=== PATIENT | female | born 1995 | race Caucasian/White ===

== ENCOUNTER 2016-08-24 23:34 | Inpatient (IN) | payer OTHER ==
[2016-08-25 00:21] LABS: HCT 39.5 % (37.0-47.0); HGB 13.4 g/dl (12.5-16.0); MCH 31.4 pg (25.0-31.0); MCHC 33.9 g/dL (32.0-36.0); MCV 92.5 fL (78.0-100.0); MPV 12.2 fL (6.0-9.5); RBC 4.27 M/uL (4.20-5.40); RDW 14.9 % (11.5-14.0); WBC 16.8 K/uL (4.0-10.5)
[2016-08-25 00:24] LABS: BILIRUBIN NEGATIVE (NEGATIVE); BLOOD NEGATIVE Ery/uL (NEGATIVE); CLARITY CLEAR (CLEAR); COLOR YELLOW (YELLOW); GLUCOSE (U) NORMAL (NORMAL); KETONE (U) NEGATIVE (NEGATIVE); LEUKOCYTES 1+ Leu/uL (NEGATIVE); NITRITE NEGATIVE (NEGATIVE); PROTEIN NEGATIVE (NEGATIVE); UROBILINOGEN 0.2 mg/dL (0.2-1.0); pH 7.5 (5.0-9.0)
[2016-08-25 00:28] LABS: BACTERIA 1+
[2016-08-25 00:33] LABS: AMPHETAMINES NEGATIVE (NEGATIVE); BARBITURATES NEGATIVE (NEGATIVE); BENZODIAZEPINES NEGATIVE (NEGATIVE); COCAINE NEGATIVE (NEGATIVE); MARIJUANA (THC) NEGATIVE (NEGATIVE); METHADONE NEGATIVE (NEGATIVE); TRICYCLIC ANTIDEPRESSANT NEGATIVE (NEGATIVE)
[2016-08-25 04:08] LABS: BILIRUBIN NEGATIVE (NEGATIVE); BLOOD NEGATIVE Ery/uL (NEGATIVE); CLARITY CLEAR (CLEAR); COLOR YELLOW (YELLOW); GLUCOSE (U) NORMAL (NORMAL); KETONE (U) NEGATIVE (NEGATIVE); LEUKOCYTES NEGATIVE Leu/uL (NEGATIVE); NITRITE NEGATIVE (NEGATIVE); PROTEIN NEGATIVE (NEGATIVE); UROBILINOGEN 0.2 mg/dL (0.2-1.0)
[2016-08-25 13:30] LABS: HCT 34.1 % (37.0-47.0); HGB 11.3 g/dl (12.5-16.0); MCH 31.2 pg (25.0-31.0); MCHC 33.1 g/dL (32.0-36.0); MCV 94.2 fL (78.0-100.0); MPV 11.4 fL (6.0-9.5); RBC 3.62 M/uL (4.20-5.40); RDW 14.7 % (11.5-14.0); WBC 13.4 K/uL (4.0-10.5)
== END 2016-08-27 10:35 | disposition home or self-care (01) | DRG 766 ==
LOC: FOD 23:34 → FOB 23:36 → FOD 23:49 → FOB 23:50
PROVIDERS: ADMIT Obstetrics & Gynecology
PROC: 10D00Z1 Extraction of Products of Conception, Low, Open Approach (ICD-10-PCS; principal; 2016-08-25 01:27)
DX: O34.211 Maternal care for low transverse scar from previous cesarean delivery (principal); F17.210 Nicotine dependence, cigarettes, uncomplicated; Z3A.38 38 weeks gestation of pregnancy; Z37.0 Single live birth; R10.9 Unspecified abdominal pain; O99.334 Smoking (tobacco) complicating childbirth
CPT/HCPCS: 36415; 80305; 81001; 81003; J0690; J1885

== ENCOUNTER 2017-02-15 01:25 | Emergency (ER) | payer OTHER ==
[2017-02-15 02:46] LABS: BASOPHIL 0.2 % (0-2); HGB 13.5 g/dl (12.5-16.0); LYMPHOCYTE 37.2 % (15-48); MCH 29.4 pg (25.0-31.0); MCHC 32.9 g/dL (32.0-36.0); MCV 89.3 fL (78.0-100.0); MONOCYTE 10.4 % (0-12); NEUTROPHIL 49.2 % (41-80); PLT 191 K/uL (150-400); RBC 4.59 M/uL (4.20-5.40); RDW 14.5 % (11.5-14.0); WBC 6.3 K/uL (4.0-10.5)
[2017-02-15 03:01] LABS: BILIRUBIN NEGATIVE (NEGATIVE); BLOOD 2+ Ery/uL (NEGATIVE); CLARITY CLEAR (CLEAR); COLOR YELLOW (YELLOW); GLUCOSE (U) NORMAL (NORMAL); KETONE (U) TRACE mg/dL (NEGATIVE); LEUKOCYTES NEGATIVE Leu/uL (NEGATIVE); NITRITE NEGATIVE (NEGATIVE); PROTEIN NEGATIVE (NEGATIVE); pH 6.5 (5.0-9.0)
== END 2017-02-15 03:19 | disposition left against medical advice (07) ==
LOC: FER 01:25
PROVIDERS: Emergency Medicine Emergency Medical Services
DX: N93.8 Other specified abnormal uterine and vaginal bleeding (principal); F17.210 Nicotine dependence, cigarettes, uncomplicated
CPT/HCPCS: 36415; 81001; 85025